=== PATIENT | female | born 1970 | race Caucasian/White ===

== ENCOUNTER 2021-02-09 11:23 | Outpatient (RCR) | payer BC, SELFPAY ==
[2021-02-09] MEDS: ACETAMINOPHEN 325 MG TABLET 650 MG PO (15:11)
[2021-02-09] MEDS: FAMOTIDINE 20 MG TABLET PO (15:12)
[2021-02-09] MEDS: diphenhydrAMINE HCl CAP 25 MG CAPSULE PO (15:12)
[2021-02-09 15:15] VITALS: BP 107/64; PULSE 79; RESP 20; TEMP 36.9; O2SAT 100
[2021-02-09 16:23] VITALS: BP 112/75; PULSE 78; RESP 20; TEMP 37; O2SAT 98
== END 2021-02-09 17:00 | disposition home or self-care (01) ==
LOC: AMCINF 11:23
PROVIDERS: PCP Internal Medicine; Visit Provider Internal Medicine Hematology & Oncology
DX: U07.1 COVID-19 (principal); I10 Essential (primary) hypertension; D84.9 Immunodeficiency, unspecified
CPT/HCPCS: A9270; M0243; Q0244

== ENCOUNTER 2022-10-27 11:16 | Outpatient (CLI) | payer BC, SELFPAY ==
--- NOTE | ~2022-10-27 | CT_ITS ---
EXAMINATION: CT abdomen pelvis w con DATE: 10/27/2022 12:18 INDICATION: Esophageal pain. Abdominal pain. TECHNIQUE: Computed tomography (CT) of the abdomen and pelvis was performed with 100 mL Omnipaque 350 intravenous contrast. Automated exposure control and iterative reconstruction technique were employe d. The dose-length product was 275.56 mGy-cm. COMPARISON: CT abdomen 12/09/2004 FINDINGS: The visualized portions of the lung bases demonstrate mild atelectasis. No pleural effusion . The heart size is normal. No pericardial effusion. The liver, gallbladder, spleen, pancreas, adrena l glands, and right kidney are normal. There is a 9 mm cyst in left kidney. There is a large volume o f stool in the colon. The appendix is normal. There are no pathologically enlarged lymph nodes. There is no free intraperitoneal fluid. There is mild thoracic and lumbar spondylosis. IMPRESSION: 1. No etiology for the patient's symptoms. Reviewed, dictated and finalized at location A.
[2022-10-27 12:09] LABS: Estimated Glomerular Filt Rate > 60
== END 2022-10-27 11:17 | disposition home or self-care (01) ==
PROVIDERS: PCP Internal Medicine; Visit Provider Nurse Practitioner
DX: R10.9 Unspecified abdominal pain (principal)
CPT/HCPCS: 74177; Q9967